=== PATIENT | female | born 1990 | race American Indian/Alaskan Native ===

== ENCOUNTER 2017-09-11 12:13 | Emergency (ER) | payer BC ==
[2017-09-11 12:41] VITALS: BP 105/76; PULSE 138; RESP 18; TEMP 100.6; O2SAT 99; BMI 33.7
--- NOTE | 2017-09-11 12:57 | ED PDOC ---
Arrival/HPI - General Time Seen by Provider: 09/11/17 12:40 Historian: Patient - History of Present Illness Narrative History of Present Illness (Text): 09/11/17 12:52 Meredith Rubi is a 26 year old female, 35 weeks , who presents to the emergency department complaining of 36 hour duration of myalgia, arthralgia , generalized weakness, fatigue, ear ache, sore throat, non-productive cough, 101 degree fever, and chills. Patient denies any vaginal discharge or bleeding, abdominal pain, nausea, vomiting, diarrhea, urinary symptoms, or any other complaints at this time. Patient is not a smoker or a drinker. Time/Duration: Other (36 hours) Symptom Onset: Gradual Symptom Course: Unchanged Context: Home Past Medical History - Provider Review Nursing Documentation Reviewed: Yes Family/Social History - Physician Review Nursing Documentation Reviewed: Yes Family/Social History: No Known Family HX Allergies/Home Meds Allergies/Adverse Reactions: Allergies No Known Allergies Allergy (Unverified 09/11/17 12:47) Review of Systems - Review of Systems Constitutional: Fatigue, Fevers, Night Sweats, Other (generalized weakness) Eyes: absent: Vision Changes ENT: Sore Throat, Other (ear ache). absent: Hearing Changes Respiratory: Cough Cardiovascular: absent: Chest Pain Gastrointestinal: absent: Abdominal Pain Genitourinary Female: absent: Dysuria, Frequency Musculoskeletal: absent: Arthralgias Skin: absent: Rash, Pruritis Neurological: absent: Headache, Dizziness Endocrine: absent: Diaphoresis Hemo/Lymphatic: absent: Adenopathy Psychiatric: absent: Anxiety, Depression Physical Exam Vital Signs Reviewed: Yes Vital Signs Temp Pulse Resp BP Pulse Ox 09/11/17 12:40 100.6 F H 138 H 18 105/76 99 Temperature: Febrile Blood Pressure: Normal Pulse: Tachycardic Respiratory Rate: Normal Appearance: Positive for: Well-Appearing, Non-Toxic, Comfortable Pain Distress: None Mental Status: Positive for: Alert and Oriented X 3 - Systems Exam Head: Present: Atraumatic, Normocephalic Pupils: Present: PERRL Extroacular Muscles: Present: EOMI Conjunctiva: Present: Normal Mouth: Present: Moist Mucous Membranes Neck: Present: Normal Range of Motion Respiratory/Chest: Present: Clear to Auscultation, Good Air Exchange. No: Respiratory Distress, Accessory Muscle Use Cardiovascular: Present: Regular Rate and Rhythm, Normal S1, S2. No: Murmurs Abdomen: Present: Other (Gravid uterus) Back: Present: Normal Inspection Upper Extremity: Present: Normal Inspection. No: Cyanosis, Edema Lower Extremity: Present: Normal Inspection. No: Edema Neurological: Present: GCS=15, CN II-XII Intact, Speech Normal Skin: Present: Warm, Dry, Normal Color. No: Rashes Psychiatric: Present: Alert, Oriented x 3, Normal Insight, Normal Concentration Medical Decision Making ED Course and Treatment: 09/11/17 13:00 Impression: 26 year old female complaining of 36 hour duration of myalgia, arthralgia, generalized weakness, fatigue, ear ache, sore throat, non-productive cough, 101 degree fever, and chills. Plan: -- Tylenol -- Reassess and disposition Progress Notes: 09/11/17 14:09 Flu and strep are both negative. Patient will be discharged home to follow up with PMD. Tylenol as directed on bottle. Follow-up with [facility]. Follow up in ER as needed. Increase fluids. Patient does not appear ill or toxic. heart rate 138. - Lab Interpretations Lab Results: Lab Results 09/11/17 12:59: Influenza Typ A,B (EIA) Negative for flu a/b, Grp A Beta Strep Ag Negative - Medication Orders Current Medication Orders: Discontinued Medications Acetaminophen (Tylenol 325mg Tab) 975 mg PO STAT STA Stop: 09/11/17 12:49 Last Admin: 09/11/17 13:16 Dose: 975 mg MAR Pain/Vitals Document 09/11/17 13:16 CO (Rec: 09/11/17 13:16 [id number]) Pain Reassessment Is This A Pain ReAssessment? No - Scribe Statement The provider has reviewed the documentation as recorded by the Maycoibariel Fritz Provider Scribe Attestation: All medical record entries made by the Scribe were at my direction and personally dictated by me. I have reviewed the chart and agree that the record accurately reflects my personal performance of the history, physical exam, medical decision making, and the department course for this patient. I have also personally directed, reviewed, and agree with the discharge instructions and disposition. Disposition/Present on Arrival - Present on Arrival Any Indicators Present on Arrival: No History of DVT/PE: No History of Uncontrolled Diabetes: No Urinary Catheter: No History of Decub. Ulcer: No - Disposition Have Diagnosis and Disposition been Completed?: Yes Diagnosis: Fever, , Viral illness Disposition: HOME/ ROUTINE Disposition Time: 14:10 Patient Plan: Discharge Condition: GOOD Discharge Instructions (ExitCare): (ED), Fever in Adults (ED), Viral Syndrome (ED) Additional Instructions: Tylenol as directed on bottle. Follow-up with PMD. Follow-up with [facility]. Follow -up in ER as needed. Increase fluids. Forms: WORK NOTE
[2017-09-11 14:07] LABS: INFLUENZA A B NEGATIVE FOR FLU A/B (NEGATIVE)
== END 2017-09-11 14:38 | disposition home or self-care (01) ==
LOC: ED 12:13
DX: O98.513 Other viral diseases complicating pregnancy, third trimester (principal); Z3A.35 35 weeks gestation of pregnancy; R50.9 Fever, unspecified